=== PATIENT | female | born 1925 | race Asian ===

== ENCOUNTER → 2016-05-28 | Outpatient (CLI) | payer OTHER, MEDICAID | LOC: BHFA 14:45 | PROVIDERS: ATTEND Internal Medicine | DX: I50.9 Heart failure, unspecified (principal); R60.9 Edema, unspecified ==

== ENCOUNTER → 2016-06-03 | Outpatient (CLI) | payer OTHER, MEDICAID | LOC: FIMAGING 16:14 | PROVIDERS: ATTEND Nurse Practitioner Family | DX: M17.11 Unilateral primary osteoarthritis, right knee (principal); M22.41 Chondromalacia patellae, right knee; M71.21 Synovial cyst of popliteal space [Baker], right knee ==

== ENCOUNTER 2016-10-08 20:52 | Emergency (ER) | payer OTHER, MEDICAID ==
[2016-10-08 20:58] VITALS: RESP 16; TEMP 98.4
--- NOTE | 2016-10-08 21:26 | EDPHY ---
HPI/HX/ROS/PE/MDM Narrative: CHIEF COMPLAINT: Blood in stool HPI: This patient is an 89 year old female with history of hemorrhoids who presents to the Emergency Department following an episode of bright red blood in her stool at 1700 today. She has had mild bleeding secondary to hemorrhoids in the past but today's episode was more severe. She did have one prior upper GI bleed following NSAID use which presented with black stools. No history of anticoagulant use. History obtained with help of daughter at bedside who serves as synthetic filament extruder for the patient. REVIEW OF SYSTEMS: Aside from elements discussed in the HPI, a comprehensive 10-point review of systems was reviewed and is negative. PMH: Hypertension, hyperlipidemia, minor CVA in 1999 SOCIAL HISTORY: Daughter at bedside PHYSICAL EXAM: General:Patient is alert, in no acute distress. ENT:Eyes are normal to inspection. ENT inspection normal. Neck: Normal inspection. Full range of motion. Respiratory:No respiratory distress. Breath sounds normal bilaterally. Cardiovascular: Regular rate and rhythm. Strong peripheral pulses. Normal cap refill. Abdomen:The abdomen is nontender to palpation. There are no peritoneal signs. There are normal bowel sounds. Rectal: No obvious bleeding external hemorrhoids and a small amount of dried red blood on underwear. No tenderness. Back: Normal to inspection. No tenderness to palpation. Skin: Normal color. No rash. Warm and dry. Extremities: Normal appearance. Full range of motion. Neuro: Oriented x3. Normal motor function. Normal sensory function. ED Course: 89-year-old female presents following single episode of bright red blood in stool. She has a history of hemorrhoids and one prior upper GI bleed which presented with melena. Rectal exam reveals no obvious bleeding external hemorrhoids and a small amount of dried red blood on underwear. No tenderness. No additional significant exam findings. No abdominal pain, tenderness, elevated WBC or fever to suggest diverticulitis. Her normal HCT and lack of melena suggests a hemorrhoidal source rather than true GI bleed. She is hypertensive at 178/95 at time of triage but vital signs are otherwise normal. Labs obtained: Hemoglobin and hematocrit are both within normal ranges. I discussed lab results with the patient and her daughter. She will be discharged home with customary return precautions and instructions to follow-up with her PCP for further evaluation. I cautioned them that I cannot fully rule out GI bleed without further testing, and that patient is at higher risk for complication given age, but that this appears to likely represent a hemorrhoidal bleed. Patient already has an rx for hemorrhoids called in by her PCP. We discussed need for immediate return to the ED for continued bleeding, melena or weakness. - Data Points Laboratory Results: Laboratory Results 10/08/16 21:10 10/08/16 21:10 10/08/16 10/08/16 10/08/16 21:10 21:10 21:10 WBC 5.67 10^3/uL 10^3/uL (3.80-9.50) RBC 4.38 10^6/uL 10^6/uL (4.18-5.33) Hgb 13.8 g/dL g/dL (12.6-16.3) Hct 40.3 % % (38.0-47.0) MCV 92.0 fL fL (81.5-99.8) MCH 31.5 pg pg (27.9-34.1) MCHC 34.2 g/dL g/dL (32.4-36.7) RDW 13.4 % % (11.5-15.2) Plt Count 198 10^3/uL 10^3/uL (150-400) MPV 9.8 fL fL (8.7-11.7) Neut % (Auto) 64.2 % % (39.3-74.2) Lymph % (Auto) 26.6 % % (15.0-45.0) Creek % (Auto) 7.1 % % (4.5-13.0) Eos % (Auto) 0.9 % % (0.6-7.6) Baso % (Auto) 0.7 % % (0.3-1.7) Nucleat RBC Rel Count 0.0 % % (0.0-0.2) Absolute Neuts (auto) 3.64 10^3/uL 10^3/uL (1.70-6.50) Absolute Lymphs (auto) 1.51 10^3/uL 10^3/uL (1.00-3.00) Absolute Monos (auto) 0.40 10^3/uL 10^3/uL (0.30-0.80) Absolute Eos (auto) 0.05 10^3/uL 10^3/uL (0.03-0.40) Absolute Basos (auto) 0.04 10^3/uL 10^3/uL (0.02-0.10) Absolute Nucleated RBC 0.00 10^3/uL 10^3/uL (0-0.01) Immature Gran % 0.5 % % (0.0-1.1) Immature Gran # 0.03 10^3/uL 10^3/uL (0.00-0.10) PT 12.6 SEC SEC (12.0-15.0) INR 0.95 (0.83-1.16) APTT 27.6 SEC SEC (23.0-38.0) Sodium 130 mEq/L L mEq/L (134-144) Potassium 4.7 mEq/L mEq/L (3.5-5.2) Chloride 97 mEq/L mEq/L (97-110) Carbon Dioxide 21 mEq/l L mEq/l (22-31) Anion Gap 12 mEq/L mEq/L (8-16) BUN 21 mg/dL mg/dL (7-23) Creatinine 0.9 mg/dL mg/dL (0.6-1.0) Estimated GFR 59 Glucose 104 mg/dL H mg/dL (70-100) Calcium 9.8 mg/dL mg/dL (8.5-10.4) General Time Seen by Provider: 10/08/16 21:24 Initial Vital Signs: Initial Vital Signs Temperature (C) 36.9 C 10/08/16 20:55 Heart Rate 81 10/08/16 20:55 Respiratory Rate 16 10/08/16 20:55 Blood Pressure 178/95 H 10/08/16 20:55 O2 Sat (%) 95 10/08/16 20:55 O2 Delivery Mode Room Air Allergies/Adverse Reactions: No Known Allergies Allergy (Unverified 10/08/16 20:55) Home Medications: Medication Instructions Recorded Lisinopril [Zestril 10 mg (RX)] 10 mg PO DAILY 10/12/11 Departure - Departure Disposition: Home, Routine, Self-Care Clinical Impression: Rectal bleeding Condition: Good Instructions: Rectal Bleeding (ED) Additional Instructions: 1. Follow-up with your primary care provider this week for further evaluation. 2. Return to the Emergency Department for multiple recurrent episodes of blood in stool, for pain in your abdomen or rectum, for black stools, weakness, lightheadedness, or other serious concerns. Referrals: Rosetta Schrader MD [Primary Care Provider] - As per Instructions Report Scribed for: Wicho Goel Report Scribed by: Kamila Barnes Date of Report: 10/08/16 Time of Report: 21:25 Physician Review and Approval Statement: Portions of this note were transcribed by an ED scribe. I personally performed the history, physical exam, and medical decision making; and confirm the accuracy of the information in the transcribed note.
[2016-10-08 21:30] LABS: % IMMATURE GRANULYOCYTES 0.5 % (0.0-1.1); ABSOLUTE IMMATURE GRANULOCYTES 0.03 10^3/uL (0.00-0.10); ADD DIFF? NO; ADD MORPH? NO; ADD SCAN? NO; ATYPICAL LYMPHOCYTE FLAG 20 (0-99); FRAGMENT RBC FLAG 0 (0-99); HEMATOCRIT 40.3 % (38.0-47.0); HEMOGLOBIN 13.8 g/dL (12.6-16.3); LEFT SHIFT FLG 0 (0-99); LIPEMIA HEMOLYSIS FLAG 90 (0-99); MEAN CELL HEMOGLOBIN 31.5 pg (27.9-34.1); MEAN CELL HEMOGLOBIN CONCENTR. 34.2 g/dL (32.4-36.7); MEAN PLATELET VOLUME 9.8 fL (8.7-11.7); PLATELET CLUMPS FLAG 0 (0-99); PLATELET COUNT 198 10^3/uL (150-400); RED BLOOD CELL COUNT 4.38 10^6/uL (4.18-5.33); RED CELL DISTRIBUTION WIDTH 13.4 % (11.5-15.2)
[2016-10-08 21:40] LABS: INR 0.95 (0.83-1.16); PROTIME(PATIENT) 12.6 SEC (12.0-15.0)
[2016-10-08 21:41] LABS: APTT 27.6 SEC (23.0-38.0)
[2016-10-08 21:53] LABS: ANION GAP 12 mEq/L (8-16); CALCIUM 9.8 mg/dL (8.5-10.4); CARBON DIOXIDE 21 mEq/l (22-31); CHLORIDE 97 mEq/L (97-110); CREATININE 0.9 mg/dL (0.6-1.0); GLOMERULAR FILTRATION RATE 59; GLUCOSE 104 mg/dL (70-100); POTASSIUM 4.7 mEq/L (3.5-5.2); SODIUM 130 mEq/L (134-144)
[2016-10-08 22:10] VITALS: BP 141/86; PULSE 70; O2SAT 96
== END 2016-10-08 22:06 | disposition home or self-care (01) ==
DX: K62.5 Hemorrhage of anus and rectum (principal); Z86.73 Personal history of transient ischemic attack (TIA), and cerebral infarction without residual deficits